=== PATIENT | female | born 1960 | race Caucasian/White ===

== ENCOUNTER → 2024-09-16 08:04 | Outpatient (REF) | payer BC, SELFPAY | LOC: RAD 08:04 | PROVIDERS: ATTENDING PHYSICIAN Internal Medicine Rheumatology; FAMILY PHYSICIAN Family Medicine | DX: Z79.899 Other long term (current) drug therapy (principal); M81.0 Age-related osteoporosis without current pathological fracture | CPT/HCPCS: 77080; 77081 ==